=== PATIENT | male | born 1960 | race African-American/Black ===

== ENCOUNTER 2017-03-28 07:03 | Emergency (ER) | payer BC, OTHER ==
[2017-03-28] MEDS ORDERED: CloNIDine HCL 0.1 MG TABLET PO ONE (07:25)
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
[2017-03-28 08:32] LABS: APPEARANCE,URINE Clear (CLEAR); COLOR,URINE Yellow (YELLOW); OCCULT BLOOD,URINE Trace-intact (NEGATIVE)
[2017-03-28 08:35] LABS: EOSINOPHILS % 4.3 % (0.0-6.8); MEAN CORPUSCULAR HEMOGLOBIN 31.6 pg (28.0-34.0); MEAN CORPUSCULAR VOLUME 91.1 fl (80.0-100.0); MONOCYTES % 5.2 % (0.0-11.0); NEUTROPHILS # 3.4 # k/uL (1.4-7.7)
[2017-03-28 08:37] LABS: AMPHETAMINE NON NEGATIVE ng/mL (<1000); BARBITURATES NEGATIVE ng/mL (<300); CANNABINOIDS NEGATIVE ng/mL (< 50); COCAINE NEGATIVE ng/mL (<300); METHAMPHETAMINE NON NEGATIVE ng/mL (<1000); METHYLENEDIOXYMETHAMPHETAMINE NEGATIVE ng/mL (<500); OPIATES NEGATIVE ng/mL (<300)
[2017-03-28 08:47] LABS: eGFR (African) > 60; eGFR (Non-African) > 60
[2017-03-28 09:11] VITALS: BP 170/100
--- NOTE | 2017-03-28 15:01 | Diagnostic Imaging Report ---
ARIS TITUS [facility] [address] [facility] [address] Report Submission Date: Mar 28, 2017 8:19:13 AM CDT Patient Study Name: JAKE DOE Date: Mar 28, 2017 7:20:29 AM CDT Modality Type: CR Gender: F Description: SPINE : 64 Institution: [facility] Physician: ARIS TITUS Cervical spine 3 views Clinical history neck pain the Technique AP open mouth lateral Findings: There is limited visualization of T12 shoulder girdle. There is no fracture. Normal cervical curvature is straightened. The disc and vertebral body height are normal. The C1/C2 articulation appears normal. Impression: No acute cervical spine pathology Electronically signed on Mar 28, 2017 8:19:13 AM CDT by: Alexei RIOS
--- NOTE | 2017-03-28 15:02 | Diagnostic Imaging Report ---
ARIS TITUS [facility] [address] [facility] [address] [address] Report Submission Date: Mar 28, 2017 8:26:31 AM CDT Patient Study Name: JAKE DOE Date: Mar 28, 2017 7:24:48 AM CDT Modality Type: CR Gender: F Description: SHOULDER : 64 Institution: [facility] Physician: ARIS TITSU Left shoulder 3 views Clinical history: Pain Technique internal rotation external rotation scapular Y Findings: There is no fracture dislocation. Chronic arthritic changes are present the shoulder girdle. The left lung field appears clear. The scapula appears intact Impression: Arthritic changes of the shoulder joint and acromioclavicular joint otherwise negative Electronically signed on Mar 28, 2017 8:26:31 AM CDT by: Alexei RIOS
--- NOTE | 2017-03-28 15:02 | Diagnostic Imaging Report ---
ARIS TITUS [facility] [address] [facility] [address] [address] Report Submission Date: Mar 28, 2017 8:26:31 AM CDT Patient Study Name: JAKE DOE Date: Mar 28, 2017 7:24:48 AM CDT Modality Type: CR Gender: F Description: SHOULDER : 64 Institution: [facility] Physician: ARIS TITUS Left shoulder 3 views Clinical history: Pain Technique internal rotation external rotation scapular Y Findings: There is no fracture dislocation. Chronic arthritic changes are present the shoulder girdle. The left lung field appears clear. The scapula appears intact Impression: Arthritic changes of the shoulder joint and acromioclavicular joint otherwise negative Electronically signed on Mar 28, 2017 8:26:31 AM CDT by: Alexei RIOS
--- NOTE | 2017-03-28 15:04 | Diagnostic Imaging Report ---
ARIS TITUS [facility] [address] [facility].[address] [address] Report Submission Date: Mar 28, 2017 8:24:01 AM CDT Patient Study Name: JAKE DOE Date: Mar 28, 2017 7:52:55 AM CDT Modality Type: CR Gender: F Description: SKULL,SINUS : 64 Institution: [facility] Physician: ARIS TITUS Skull series Clinical history: Headache Technique 4 views of the skull Findings: There is no evidence of skull fracture or increased intracranial pressure. Visualized sinuses appear clear. Multiple missing teeth are noted. Carious teeth are also present. No lytic changes are seen. Impression: No acute skull pathology Consider CT of the head for evaluation of the intracranial contents Electronically signed on Mar 28, 2017 8:24:01 AM CDT by: Alexei RIOS
--- NOTE | 2017-03-28 15:04 | Diagnostic Imaging Report ---
ARIS TITUS [facility] [address] [facility] [address] [address] Report Submission Date: Mar 28, 2017 8:20:09 AM CDT Patient Study Name: JAKE DOE Date: Mar 28, 2017 7:30:22 AM CDT Modality Type: CR Gender: F Description: SPINE : 64 Institution: [facility] Physician: ARIS TITUS Thoracic spine 3 views Clinical history pain Technique AP lateral swimmer's Findings: There is multilevel disc space narrowing and spur formation. No fracture or paravertebral mass is identified. 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
--- NOTE | 2017-03-28 15:05 | Diagnostic Imaging Report ---
ARIS TITUS [facility] [address] [facility].[address] [address] Report Submission Date: Mar 28, 2017 8:22:32 AM CDT Patient Study Name: JAKE DOE Date: Mar 28, 2017 7:46:24 AM CDT Modality Type: CR Gender: F Description: UPPER EXTREMITY : 64 Institution: [facility] Physician: ARIS TITUS Left wrist 3 views Clinical history pain Technique AP lateral oblique Findings: There is no fracture or dislocation. Bone density is normal. Impression: Negative left wrist Electronically signed on Mar 28, 2017 8:22:32 AM CDT by: Alexei RIOS
--- NOTE | 2017-03-28 15:06 | Diagnostic Imaging Report ---
ARIS TITUS [facility] [address] [facility] [address] [address] Report Submission Date: Mar 28, 2017 8:21:29 AM CDT Patient Study Name: JAKE DOE Date: Mar 28, 2017 7:31:30 AM CDT Modality Type: CR Gender: F Description: PELVIS : 64 Institution: [facility] Physician: ARIS TITUS Left hip 2 views Clinical history pain Technique AP supine and frog leg of the left hip Findings: There is no fracture or dislocation. Bone density is normal. Superior joint space narrowing suggest early osteoarthritis Impression : early degenerative arthritis otherwise negative Consider CT for further evaluation of a pelvic or hip pain Electronically signed on Mar 28, 2017 8:21:29 AM CDT by: Alexei RIOS
== END 2017-03-28 09:10 | disposition home or self-care (01) ==
LOC: ED 07:03
DX: S00.90XA Unspecified superficial injury of unspecified part of head, initial encounter (principal); S16.1XXA Strain of muscle, fascia and tendon at neck level, initial encounter; S29.019A Strain of muscle and tendon of unspecified wall of thorax, initial encounter; S39.012A Strain of muscle, fascia and tendon of lower back, initial encounter; S63.502A Unspecified sprain of left wrist, initial encounter; S43.402A Unspecified sprain of left shoulder joint, initial encounter; S73.102A Unspecified sprain of left hip, initial encounter; V89.2XXA Person injured in unspecified motor-vehicle accident, traffic, initial encounter; Y93.9 Activity, unspecified; Y99.9 Unspecified external cause status
CPT/HCPCS: 36415; 70260; 72040; 72072; 72100; 73030; 73110; 80053; 80320; 80377; 81002; 85025; 99283; G0480; G0481